=== PATIENT | female | born 1985 | race American Indian/Alaskan Native ===

== ENCOUNTER 2019-04-13 11:26 | Observation (INO) | payer MEDICAID ==
--- NOTE | 2019-04-13 11:45 | Emergency Department Report ---
Blank Doc - Documentation Documentation: This is a 33-year-old female that presents with uncontrolled HTN. Is 36 weeks and was sent by OBGYN for further eval. This initial assessment/diagnostic orders/clinical plan/treatment(s) is/are subject to change based on patient's health status, clinical progression and re- assessment by fellow clinical providers in the ED. Further treatment and workup at subsequent clinical providers discretion. Patient/guardians urged not to elope from the ED as their condition may be serious if not clinically assessed and managed. Initial orders include: 1- Patient sent to MAIN ED for further evaluation and treatment 2- labs 3- UA
[2019-04-13] MEDS ORDERED: MAGNESIUM SULFATE 4GM/100ML 4 GM/100 ML BAG IV ONE (12:32)
[2019-04-13] MEDS ORDERED: APRESOLINE IV ONE (12:32)
[2019-04-13] MEDS ORDERED: MAGNESIUM SULFATE 40GM/1000ML 40 GM/1,000 ML BAG IV ONE (12:32)
--- NOTE | 2019-04-13 12:34 | Emergency Department Report ---
ED General Adult HPI - General Chief complaint: Dyspnea/Respdistress Stated complaint: PRE ECLAMPSIA Time Seen by Provider: 04/13/19 11:43 Source: patient, RN notes reviewed Mode of arrival: Ambulatory Limitations: No Limitations - History of Present Illness Initial comments: Gynecology: Dr. Crain Past medical history: Hypertension, preeclampsia, obesity, probable undiagnosed sleep apnea. This is a 33-year-old female. The patient is not known to this provider previously. The patient is sent to the ER by her airport representative for evaluation of presumed peripartum preeclampsia. Patient complains of exertional shortness of breath, present since before the inception of her current . She endorses that she has incomplete/in adequate sleep, and will fall sleep during the day. She snores quite a bit at night. She does not have a formal diagnosis of sleep apnea. She denies hematemesis and bright red blood per rectum. She denies chest pain. She endorses suprapubic lower abdominal pressure and discomfort, intermittently, which decreases when she sits back, and increases with movement. She is not having pain at this time. She does not endorse urinary symptoms at this time. She also describes binocular blurred vision, present for weeks. This is painless. This is not associated with a headache. She hasn't gotten her vision checked recently. -: Gradual Consistency: intermittent Improves with: other Worsens with: other - Related Data Allergies Allergy/AdvReac Type Severity Reaction Status Date / Time No Known Allergies Allergy Verified 04/13/19 15:55 ED Review of Systems ROS: Stated complaint: PRE ECLAMPSIA Other details as noted in HPI Constitutional: denies: fever Eyes: other. denies: eye pain, eye discharge ENT: denies: dental pain Respiratory: denies: cough Cardiovascular: dyspnea on exertion. denies: edema Gastrointestinal: abdominal pain. denies: vomiting Genitourinary: denies: urgency Musculoskeletal: back pain Skin: denies: lesions Neurological: denies: headache, numbness, paresthesias, confusion ED Past Medical Hx - Past Medical History Previous Medical History?: Yes Additional medical history: Pre Eclampsia - Social History Smoking Status: Never Smoker Substance Use Type: None ED Physical Exam - General Limitations: No Limitations General appearance: alert, in no apparent distress - Head Head exam: Present: atraumatic, normocephalic - Eye Eye exam: Present: normal appearance, EOMI, other (visual acuity intact to finger counting, color perception, reading at a close distance). Absent: nystagmus - ENT ENT exam: Present: normal exam, normal orophraynx, mucous membranes moist, normal external ear exam - Neck Neck exam: Present: normal inspection, full ROM. Absent: tenderness, meningismus - Respiratory Respiratory exam: Present: normal lung sounds bilaterally. Absent: respiratory distress - Cardiovascular Cardiovascular Exam: Present: normal rhythm, tachycardia, normal heart sounds. Absent: systolic murmur, diastolic murmur, rubs, gallop - GI/Abdominal GI/Abdominal exam: Present: soft, other (uterus is consistent with dates.). Absent: distended, tenderness, guarding, rebound, rigid, pulsatile mass - Extremities Exam Extremities exam: Present: normal inspection, full ROM, other (2+ pulses noted in the bilateral upper, lower extremities. Compartments soft. No long bony tenderness. The pelvis is stable.). Absent: calf tenderness - Back Exam Back exam: Present: normal inspection, full ROM. Absent: tenderness, CVA tenderness (R), CVA tenderness (L), paraspinal tenderness, vertebral tenderness - Neurological Exam Neurological exam: Present: alert, oriented X3, normal gait, other (Extraocular movements intact. Tongue midline. No facial droop. Facial sensation intact to light touch in the V1, V2, V3 distribution bilaterally. 5 and 5 strength in 4 extremities.. Sensation is intact to light touch in 4 extremities.). Absent: motor sensory deficit - Psychiatric Psychiatric exam: Present: normal affect, normal mood - Skin Skin exam: Present: warm, dry, intact, normal color. Absent: rash ED Course Vital Signs 04/13/19 04/13/19 04/13/19 11:44 12:54 13:00 Temperature 98.8 F Pulse Rate 112 H 113 H Respiratory 16 24 Rate Blood Pressure 138/81 140/83 O2 Sat by Pulse 98 100 99 Oximetry 04/13/19 13:30 Temperature Pulse Rate 109 H Respiratory 17 Rate Blood Pressure 138/87 O2 Sat by Pulse 99 Oximetry ED Medical Decision Making - Lab Data Result diagrams: 04/13/19 11:56 04/13/19 11:51 Vital Signs 04/13/19 11:44 Temperature 98.8 F Pulse Rate 112 H Respiratory 16 Rate Blood Pressure 138/81 O2 Sat by Pulse 98 Oximetry Lab Results 04/13/19 04/13/19 Range/Units 11:51 11:56 WBC 18.2 H (4.5-11.0) K/mm3 RBC 3.79 (3.65-5.03) M/mm3 Hgb 5.8 L* (10.1-14.3) gm/dl Hct 20.4 L (30.3-42.9) % MCV 54 L (79-97) fl MCH 15 L (28-32) pg MCHC 28 L (30-34) % RDW 24.2 H (13.2-15.2) % Lymph % (Auto) Door Worker [place] % (Auto) Door Worker Eos % (Auto) Door Worker Baso % (Auto) Door Worker Lymph # Door Worker Valencia # Door Worker Eos # Door Worker Baso # Door Worker Seg Neutrophils % Door Worker Seg Neutrophils # Door Worker Sodium 138 (137-145) mmol/L Potassium 3.0 L (3.6-5.0) mmol/L Chloride 98.8 (98-107) mmol/L Carbon Dioxide 21 L (22-30) mmol/L Anion Gap 21 mmol/L BUN 5 L (7-17) mg/dL Creatinine 0.5 L (0.7-1.2) mg/dL Estimated GFR > 60 ml/min BUN/Creatinine Ratio 10 % Glucose 134 H (65-100) mg/dL Calcium 8.6 (8.4-10.2) mg/dL Magnesium 1.40 L (1.7-2.3) mg/dL Total Bilirubin 0.90 (0.1-1.2) mg/dL AST 27 (5-40) units/L ALT 13 (7-56) units/L Alkaline Phosphatase 121 (35-129) units/L Total Creatine Kinase 448 H (30-135) units/L NT-Pro-B Natriuret Pep 5.36 (0-450) pg/mL Total Protein 7.3 (6.3-8.2) g/dL Albumin 3.3 L (3.9-5) g/dL Albumin/Globulin Ratio 0.8 % - EKG Data -: EKG Interpreted by Id EKG shows normal: sinus rhythm Rate: normal - EKG Data 04/13/19 13:26 This is a sinus tachycardia, 116 bpm, QTC prolonged, left ventricular hypertrophy, atrial enlargement, motion artifact, no endorsement chest pain, this EKG is not consistent with ST elevation myocardial infarction. - Medical Decision Making Differential diagnosis, including not limited to: Obstructive sleep apnea, preeclampsia, hypertensive retinopathy Assessment and plan: 33-year-old female with shortness of breath, binocular blurry vision, and elevated blood pressure. Found to be anemic. Suspect combination of anemia, and presumed undiagnosed obstructive sleep apnea as etiology for patient's exertional shortness of breath. Patient is amenable to packed red blood cell transfusion. Binocular blurry vision is nonspecific. Blood pressure currently 140/70. Discussed with her staff software engineer, Dr. Crain. He is agreeable to admitting the patient to labor and delivery. This is discussed with the patient. We will initiate magnesium. Dr. Crain is in agreement that we hold hydralazine at this time. We will also replete the patient's hypokalemia and hypomagnesemia. Patient should follow up as an outpatient once optimized as per gynecology see discussion. She'll need to follow-up with a sleep physician. Tachycardia likely secondary to underlying physiology of , and underlying physiology from presumed symptomatic anemia. The patient denies GI bleeding. Leukocytosis is likely secondary to physiology of . Critical Care Time: Yes Critical care time in (mins) excluding proc time.: 35 Critical care attestation.: If time is entered above; I have spent that time in minutes in the direct care of this critically ill patient, excluding procedure time. ED Disposition Clinical Impression: Symptomatic anemia, Hypokalemia, Hypomagnesemia Dyspnea Qualifiers: Dyspnea type: dyspnea on exertion Qualified Code(s): R06.09 - Other forms of dyspnea Disposition: -09 OP ADMIT IP TO THIS HOSP Is pt being admited?: Yes Does the pt Need Aspirin: Yes (sympto) Condition: Stable
[2019-04-13 12:39] LABS: Mean Corpuscular HGB Conc 28 % (30-34); Red Blood Count 3.79 M/mm3 (3.65-5.03)
[2019-04-13 12:43] LABS: Alanine Aminotransferase 13 units/L (7-56); Albumin 3.3 g/dL (3.9-5); BUN/Creatinine Ratio 10; Blood Urea Nitrogen 5 mg/dL (7-17); Calcium 8.6 mg/dL (8.4-10.2); Hemolysis Index 0
[2019-04-13 12:55] LABS: Hematocrit 20.4 % (30.3-42.9); Mean Corpuscular Volume 54 fl (79-97)
[2019-04-13 12:56] LABS: Red Cell Distribution Width 24.2 % (13.2-15.2)
[2019-04-13] MEDS ORDERED: K-DUR PO ONE (13:06)
[2019-04-13] MEDS ORDERED: NACL 0.9% 500 ML 500 ML IV ONE ×2 (13:07→17:51)
[2019-04-13] MEDS: KCL 10MEQ/100ML 10 MEQ/100 ML BAG IV SCH ×4 (14:20→20:13)
[2019-04-13 14:29] LABS: Hemoglobin 5.8 gm/dl (10.1-14.3)
[2019-04-13 14:43] LABS: Bacteria,Urine 1+ /HPF (Negative); Bilirubin,Urine NEG (Negative); Blood,Urine NEG (Negative); Mucus,Urine FEW /HPF
[2019-04-13 14:45] LABS: Color,Urine Yellow (Yellow)
[2019-04-13 15:51] LABS: Basophils % (Manual) 0 % (0.0-1.8); Eosinophils % (Manual) 0 % (0.0-4.3); Total Cells Counted 100
[2019-04-13 15:52] LABS: Anisocytosis 1+; Ovalocytes 1+; Platelet Count 239 K/mm3 (140-440); Tear Drop Cells 1+
[2019-04-13] MEDS ORDERED: LACTATED RINGERS 1,000 ML ONE (16:25)
[2019-04-13] MEDS ORDERED: LACTATED RINGERS 1,000 ML IV SCH ×2 (17:00→18:00)
[2019-04-13] MEDS ORDERED: COLACE PO PRN (17:39)
[2019-04-13] MEDS ORDERED: TYLENOL PO PRN (17:39)
--- NOTE | 2019-04-13 17:39 | History and Physical Report ---
History of Present Illness Date of examination: 04/13/19 Date of admission: 04/13/19 13:29 Chief complaint: Elevated BP's History of present illness: Pt is a 33yo BF EDC 05/08/19; EGA 36 3/7 weeks presents from [facility] ER after evaluation for suspected preeclampsia. She currently denies head aches or blurred vision, but complains of dyspnea on exertion. She has not received care with this , but was seen at [facility] today and sent to the ER. Past History Past Medical History: no pertinent history Past Surgical History: section Social history: no significant social history, single - Obstetrical History Expected Date of Delivery: 05/08/19 Actual Gestation: 36 Week(s) 3 Day(s) : 7 Medications and Allergies Allergies Allergy/AdvReac Type Severity Reaction Status Date / Time No Known Allergies Allergy Verified 04/13/19 15:55 Active Meds: Active Medications Magnesium Sulfate (Magnesium Sulfate 40gm/1000ml) 40 gm in 1,000 mls @ 25 mls/hr IV ONCE ONE Stop: 04/15/19 04:31 Last Admin: 04/13/19 16:48 Dose: 1 gm/hr, 25 mls/hr Documented by: Potassium Chloride (Kcl 10meq/100ml) 10 meq in 100 mls @ 100 mls/hr IV Q1H NIHARIKA Stop: 04/13/19 17:59 Last Admin: 04/13/19 16:49 Dose: 100 mls/hr Documented by: Lactated Ringer's (Lactated Ringers) 1,000 mls @ 125 mls/hr IV DIRECT NIHARIKA Review of Systems All systems: negative - Vital Signs Vital signs: Vital Signs Temp Pulse Resp BP Pulse Ox 98.8 F 112 H 16 138/81 98 04/13/19 11:44 04/13/19 11:44 04/13/19 11:44 04/13/19 11:44 04/13/19 11:44 Temp Pulse Resp BP Pulse Ox 97.7 F 104 H 20 141/79 99 04/13/19 15:44 04/13/19 17:16 04/13/19 15:44 04/13/19 17:16 04/13/19 13:30 - Physical Exam Breasts: Positive: deferred Cardiovascular: Regular rate Lungs: Positive: Clear to auscultation Abdomen: Positive: normal appearance, soft Genitourinary (Female): Positive: normal external genitalia Uterus: Positive: enlarged - Obstetrical FHR: category 1 Uterine Contraction Monitor Mode: External Results Result Diagrams: 04/13/19 11:56 04/13/19 11:51 Abnormal lab results 04/13/19 04/13/19 04/13/19 Range/Units 11:51 11:56 13:07 WBC 18.2 H (4.5-11.0) K/mm3 Hgb 5.8 L* (10.1-14.3) gm/dl Hct 20.4 L (30.3-42.9) % MCV 54 L (79-97) fl MCH 15 L (28-32) pg MCHC 28 L (30-34) % RDW 24.2 H (13.2-15.2) % Seg Neuts % (Manual) 93.0 H (40.0-70.0) % Lymphocytes % (Manual) 5.0 L (13.4-35.0) % Seg Neutrophils # Man 16.9 H (1.8-7.7) K/mm3 Lymphocytes # (Manual) 0.9 L (1.2-5.4) K/mm3 Potassium 3.0 L (3.6-5.0) mmol/L Carbon Dioxide 21 L (22-30) mmol/L BUN 5 L (7-17) mg/dL Creatinine 0.5 L (0.7-1.2) mg/dL Glucose 134 H (65-100) mg/dL Magnesium 1.40 L (1.7-2.3) mg/dL Total Creatine Kinase 448 H (30-135) units/L Albumin 3.3 L (3.9-5) g/dL Crossmatch See Detail All other labs normal. Assessment and Plan - Patient Problems (1) 36 weeks gestation of Onset Date: 04/13/19 Current Visit: Yes Status: Acute Plan to address problem: A: IUP @ 36 3/7 weeks Insufficient care Previous C Section Dyspnea Symptomatic anemia Hypokalemia Hypomagnesia P: Admit to L&D for Observation and further evaluation Continue IV Magnesium sulfate and IV potassium Will transfuse 2 units PRBC's Obtain labs and Ob u/s (2) Insufficient care in third trimester Onset Date: 04/13/19 Current Visit: Yes Status: Acute (3) Previous section complicating Onset Date: 04/13/19 Current Visit: Yes Status: Acute (4) Dyspnea Onset Date: 04/13/19 Current Visit: Yes Status: Acute Qualifiers: Dyspnea type: dyspnea on exertion Qualified Code(s): R06.09 - Other forms of dyspnea (5) Hypokalemia Onset Date: 04/13/19 Current Visit: Yes Status: Acute (6) Hypomagnesemia Onset Date: 04/13/19 Current Visit: Yes Status: Acute (7) Symptomatic anemia Onset Date: 04/13/19 Current Visit: Yes Status: Acute
--- NOTE | 2019-04-13 22:04 | Ultrasound Report ---
US OB BPP wo non-stress INDICATION: No care. COMPARISON: None available. FINDINGS: The total biophysical profile score is 8 out of 8. heart rate measures 124 bpm. Signer Name: Vinicio Zhang MD Signed: 04/13/2019 9:00 PM Workstation Name: [employer]
[2019-04-13 23:31] LABS: Amphetamine Screen,Urine PRESUMPTIVE NEGATIVE; Benzodiazepines Screen,Urine PRESUMPTIVE NEGATIVE; Cannabinoid Screen,Urine PRESUMPTIVE NEGATIVE; Cocaine Screen,Urine PRESUMPTIVE NEGATIVE; Methadone Screen,Urine PRESUMPTIVE NEGATIVE; Opiate Screen,Urine PRESUMPTIVE NEGATIVE
[2019-04-14 02:50] LABS: Hematocrit 23.3 % (30.3-42.9); Hemoglobin 6.6 gm/dl (10.1-14.3)
[2019-04-14] MEDS ORDERED: PRENATAL VITAMIN PO SCH (10:00)
[2019-04-14 11:30] LABS: Alanine Aminotransferase 12 units/L (7-56); Albumin 3.1 g/dL (3.9-5); BUN/Creatinine Ratio 10; Blood Urea Nitrogen 4 mg/dL (7-17); Calcium 8.3 mg/dL (8.4-10.2); Hemolysis Index 8
--- NOTE | 2019-04-14 14:23 | Progress Note ---
Assessment and Plan - Patient Problems (1) 36 weeks gestation of Onset Date: 04/13/19 Current Visit: Yes Status: Acute Plan to address problem: A: IUP @ 36 4/7 weeks Insufficient care Previous C Section Dyspnea - resolved Symptomatic anemia - resolved Hypokalemia - improved Hypomagnesia - improved P: May go home today. (2) Insufficient care in third trimester Onset Date: 04/13/19 Current Visit: Yes Status: Acute (3) Previous section complicating Onset Date: 04/13/19 Current Visit: Yes Status: Acute (4) Dyspnea Onset Date: 04/13/19 Current Visit: Yes Status: Acute Qualifiers: Dyspnea type: dyspnea on exertion Qualified Code(s): R06.09 - Other forms of dyspnea (5) Hypokalemia Onset Date: 04/13/19 Current Visit: Yes Status: Acute (6) Hypomagnesemia Onset Date: 04/13/19 Current Visit: Yes Status: Acute (7) Symptomatic anemia Onset Date: 04/13/19 Current Visit: Yes Status: Acute Subjective - Subjective Date of service: 04/14/19 Principal diagnosis: IUP @ 36 4/7 weeks; PTL; Previous C Section; No care; Anemia Interval history: Pt is a 33yo BF EDC 05/08/19; EGA 36 4/7 weeks who presented from [facility] ER after evaluation for suspected preeclampsia. She currently denied head aches or blurred vision, but complains of dyspnea on exertion. She has not received care with this . She was admitted and begun on IV Magnesium sulfate, IV potassium, and received 2 units of blood. She is feeling much better and denies contraction or dyspnea on exertion. Patient reports: movement normal, no new complaints, no loss of fluid, no vaginal bleeding, no contractions Objective - Vital Signs Vital Signs: Vital Signs - 12hr 04/14/19 04/14/19 04/14/19 02:24 02:29 02:31 Pulse Rate 92 H 96 H 92 H Blood Pressure O2 Sat by Pulse 96 97 92 Oximetry 04/14/19 04/14/19 04/14/19 02:34 02:39 02:44 Pulse Rate 86 94 H 99 H Blood Pressure O2 Sat by Pulse 98 100 98 Oximetry 04/14/19 04/14/19 04/14/19 02:49 02:54 02:59 Pulse Rate 88 87 86 Blood Pressure O2 Sat by Pulse 97 93 95 Oximetry 04/14/19 04/14/19 04/14/19 03:03 03:04 03:06 Pulse Rate 86 96 H 90 Blood Pressure 111/63 O2 Sat by Pulse 92 97 Oximetry 04/14/19 04/14/19 04/14/19 03:09 03:13 03:14 Pulse Rate 92 H 90 90 Blood Pressure O2 Sat by Pulse 98 92 97 Oximetry 04/14/19 04/14/19 04/14/19 03:19 03:20 03:24 Pulse Rate 87 85 86 Blood Pressure O2 Sat by Pulse 91 92 97 Oximetry 04/14/19 04/14/19 04/14/19 03:25 03:29 03:32 Pulse Rate 83 89 91 H Blood Pressure O2 Sat by Pulse 90 93 94 Oximetry 04/14/19 04/14/19 04/14/19 03:34 03:37 03:39 Pulse Rate 84 82 81 Blood Pressure O2 Sat by Pulse 92 93 93 Oximetry 04/14/19 04/14/19 04/14/19 03:43 03:48 03:49 Pulse Rate 87 84 79 Blood Pressure O2 Sat by Pulse 95 91 89 Oximetry 04/14/19 04/14/19 04/14/19 03:53 03:54 03:59 Pulse Rate 79 89 89 Blood Pressure O2 Sat by Pulse 93 96 93 Oximetry 04/14/19 04/14/19 04/14/19 04:04 04:06 04:09 Pulse Rate 84 85 82 Blood Pressure 125/69 O2 Sat by Pulse 93 91 Oximetry 04/14/19 04/14/19 04/14/19 04:14 04:19 04:24 Pulse Rate 87 92 H 95 H Blood Pressure O2 Sat by Pulse 94 98 96 Oximetry 04/14/19 04/14/19 04/14/19 04:29 04:33 04:34 Pulse Rate 98 H 87 90 Blood Pressure O2 Sat by Pulse 99 94 96 Oximetry 04/14/19 04/14/19 04/14/19 04:39 04:44 04:48 Pulse Rate 91 H 91 H 84 Blood Pressure O2 Sat by Pulse 95 97 94 Oximetry 04/14/19 04/14/19 04/14/19 04:49 04:54 04:59 Pulse Rate 85 84 95 H Blood Pressure O2 Sat by Pulse 96 91 99 Oximetry 04/14/19 04/14/19 04/14/19 05:04 05:06 05:07 Pulse Rate 90 86 88 Blood Pressure 138/78 O2 Sat by Pulse 97 93 Oximetry 04/14/19 04/14/19 04/14/19 05:09 05:13 05:14 Pulse Rate 88 88 89 Blood Pressure O2 Sat by Pulse 96 92 95 Oximetry 04/14/19 04/14/19 04/14/19 05:18 05:19 05:23 Pulse Rate 87 86 88 Blood Pressure O2 Sat by Pulse 93 95 92 Oximetry 04/14/19 04/14/19 04/14/19 05:24 05:29 05:34 Pulse Rate 89 92 H 91 H Blood Pressure O2 Sat by Pulse 95 92 92 Oximetry 04/14/19 04/14/19 04/14/19 05:39 05:44 05:49 Pulse Rate 88 88 93 H Blood Pressure O2 Sat by Pulse 93 91 96 Oximetry 04/14/19 04/14/19 04/14/19 05:50 05:54 05:56 Pulse Rate 89 87 94 H Blood Pressure O2 Sat by Pulse 94 91 93 Oximetry 04/14/19 04/14/19 04/14/19 05:59 06:01 06:04 Pulse Rate 97 H 92 H 89 Blood Pressure O2 Sat by Pulse 94 94 95 Oximetry 04/14/19 04/14/19 04/14/19 06:06 06:09 06:12 Pulse Rate 95 H 91 H 94 H Blood Pressure 142/90 O2 Sat by Pulse 92 91 93 Oximetry 04/14/19 04/14/19 04/14/19 06:14 06:19 06:24 Pulse Rate 95 H 93 H 91 H Blood Pressure O2 Sat by Pulse 97 98 97 Oximetry 04/14/19 04/14/19 04/14/19 06:29 06:34 06:39 Pulse Rate 92 H 91 H 89 Blood Pressure O2 Sat by Pulse 97 98 96 Oximetry 04/14/19 04/14/19 04/14/19 06:44 06:46 06:49 Pulse Rate 90 102 H 95 H Blood Pressure O2 Sat by Pulse 97 93 98 Oximetry 04/14/19 04/14/19 04/14/19 06:54 06:59 07:04 Pulse Rate 96 H 97 H 98 H Blood Pressure O2 Sat by Pulse 97 96 99 Oximetry 04/14/19 04/14/19 04/14/19 07:06 07:09 07:14 Pulse Rate 88 92 H 92 H Blood Pressure 140/80 O2 Sat by Pulse 98 97 Oximetry 04/14/19 04/14/19 04/14/19 07:19 07:24 07:29 Pulse Rate 95 H 87 90 Blood Pressure O2 Sat by Pulse 99 98 97 Oximetry 04/14/19 04/14/19 04/14/19 07:34 07:39 07:42 Pulse Rate 90 102 H 92 H Blood Pressure O2 Sat by Pulse 97 98 87 Oximetry 04/14/19 04/14/19 04/14/19 07:44 07:49 07:54 Pulse Rate 90 90 93 H Blood Pressure O2 Sat by Pulse 98 97 97 Oximetry 04/14/19 04/14/19 04/14/19 07:59 08:04 08:06 Pulse Rate 88 92 H 92 H Blood Pressure 134/84 O2 Sat by Pulse 98 97 Oximetry 04/14/19 04/14/19 04/14/19 08:09 08:14 08:19 Pulse Rate 91 H 90 102 H Blood Pressure O2 Sat by Pulse 98 97 99 Oximetry 04/14/19 04/14/19 04/14/19 08:24 08:29 08:34 Pulse Rate 103 H 101 H 105 H Blood Pressure O2 Sat by Pulse 97 99 98 Oximetry 04/14/19 04/14/19 04/14/19 08:39 08:44 08:49 Pulse Rate 94 H 91 H 93 H Blood Pressure O2 Sat by Pulse 98 98 97 Oximetry 04/14/19 04/14/19 04/14/19 08:54 08:59 09:04 Pulse Rate 85 95 H 93 H Blood Pressure O2 Sat by Pulse 97 98 98 Oximetry 04/14/19 04/14/19 04/14/19 09:06 09:09 09:14 Pulse Rate 90 97 H 97 H Blood Pressure 132/69 O2 Sat by Pulse 98 100 Oximetry 04/14/19 04/14/19 04/14/19 09:19 09:24 09:29 Pulse Rate 95 H 93 H 94 H Blood Pressure O2 Sat by Pulse 100 100 98 Oximetry 04/14/19 04/14/19 04/14/19 09:34 09:39 09:44 Pulse Rate 89 91 H 93 H Blood Pressure O2 Sat by Pulse 99 97 98 Oximetry 04/14/19 04/14/19 04/14/19 09:49 09:54 09:59 Pulse Rate 93 H 92 H 93 H Blood Pressure O2 Sat by Pulse 98 99 97 Oximetry 04/14/19 04/14/19 04/14/19 10:04 10:06 10:09 Pulse Rate 93 H 88 94 H Blood Pressure 118/58 O2 Sat by Pulse 97 96 Oximetry 04/14/19 04/14/19 04/14/19 10:14 10:19 10:24 Pulse Rate 94 H 88 89 Blood Pressure O2 Sat by Pulse 97 100 97 Oximetry 04/14/19 04/14/19 04/14/19 10:29 10:34 10:39 Pulse Rate 95 H 95 H 89 Blood Pressure O2 Sat by Pulse 98 98 99 Oximetry 04/14/19 04/14/19 04/14/19 10:44 10:49 10:54 Pulse Rate 90 94 H 91 H Blood Pressure O2 Sat by Pulse 97 97 97 Oximetry 04/14/19 04/14/19 04/14/19 10:59 11:04 11:06 Pulse Rate 89 94 H 93 H Blood Pressure 135/73 O2 Sat by Pulse 97 97 Oximetry 04/14/19 04/14/19 04/14/19 11:09 11:14 11:19 Pulse Rate 92 H 92 H 92 H Blood Pressure O2 Sat by Pulse 98 97 98 Oximetry 04/14/19 04/14/19 04/14/19 11:24 11:29 11:34 Pulse Rate 93 H 92 H 92 H Blood Pressure O2 Sat by Pulse 98 98 99 Oximetry 04/14/19 04/14/19 04/14/19 11:39 11:44 11:49 Pulse Rate 95 H 96 H 95 H Blood Pressure O2 Sat by Pulse 99 97 99 Oximetry 04/14/19 04/14/19 04/14/19 11:54 11:59 12:04 Pulse Rate 100 H 99 H 92 H Blood Pressure O2 Sat by Pulse 99 99 98 Oximetry 04/14/19 04/14/19 04/14/19 12:06 12:09 12:14 Pulse Rate 93 H 107 H 104 H Blood Pressure 141/72 O2 Sat by Pulse 97 97 Oximetry 04/14/19 04/14/19 04/14/19 12:19 12:23 12:24 Pulse Rate 92 H 84 93 H Blood Pressure O2 Sat by Pulse 98 84 83 L Oximetry 04/14/19 04/14/19 04/14/19 12:29 12:34 12:39 Pulse Rate 98 H 95 H 90 Blood Pressure O2 Sat by Pulse 99 99 98 Oximetry 04/14/19 04/14/19 04/14/19 12:44 12:49 12:54 Pulse Rate 88 85 90 Blood Pressure O2 Sat by Pulse 98 99 97 Oximetry 04/14/19 04/14/19 04/14/19 12:59 13:04 13:06 Pulse Rate 90 89 88 Blood Pressure 117/59 O2 Sat by Pulse 99 98 Oximetry 04/14/19 04/14/19 04/14/19 13:09 13:14 13:19 Pulse Rate 89 93 H 93 H Blood Pressure O2 Sat by Pulse 100 100 100 Oximetry 04/14/19 04/14/19 04/14/19 13:24 13:29 13:34 Pulse Rate 94 H 94 H 91 H Blood Pressure O2 Sat by Pulse 99 100 97 Oximetry 04/14/19 04/14/19 04/14/19 13:39 13:44 13:49 Pulse Rate 94 H 102 H 98 H Blood Pressure O2 Sat by Pulse 98 98 100 Oximetry 04/14/19 04/14/19 04/14/19 13:54 13:59 14:04 Pulse Rate 92 H 96 H 102 H Blood Pressure O2 Sat by Pulse 98 99 98 Oximetry 04/14/19 04/14/19 04/14/19 14:06 14:09 14:14 Pulse Rate 92 H 98 H 91 H Blood Pressure 127/84 O2 Sat by Pulse 98 98 Oximetry 04/14/19 14:19 Pulse Rate 95 H Blood Pressure O2 Sat by Pulse 98 Oximetry - Exam Cardiovascular: Regular rate Lungs: Clear to auscultation Abdomen: Present: normal appearance, soft Uterus: Present: normal FHR: category 1 Uterine Contraction Monitor Mode: External Uterine Contraction Pattern: Absent - Labs Labs: Abnormal Labs 04/13/19 04/13/19 04/13/19 11:51 11:56 13:07 WBC 18.2 H Hgb 5.8 L* Hct 20.4 L MCV 54 L MCH 15 L MCHC 28 L RDW 24.2 H Seg Neuts % (Manual) 93.0 H Lymphocytes % (Manual) 5.0 L Seg Neutrophils # Man 16.9 H Lymphocytes # (Manual) 0.9 L Sodium Potassium 3.0 L Carbon Dioxide 21 L BUN 5 L Creatinine 0.5 L Glucose 134 H Calcium Magnesium 1.40 L Total Creatine Kinase 448 H Albumin 3.3 L Crossmatch See Detail 04/14/19 04/14/19 02:03 10:16 WBC Hgb 6.6 L Hct 23.3 L MCV MCH MCHC RDW Seg Neuts % (Manual) Lymphocytes % (Manual) Seg Neutrophils # Man Lymphocytes # (Manual) Sodium 136 L Potassium 3.4 L Carbon Dioxide BUN 4 L Creatinine 0.4 L Glucose Calcium 8.3 L Magnesium 3.30 H Total Creatine Kinase Albumin 3.1 L Crossmatch Laboratory Results - last 24 hr 04/13/19 04/13/19 04/13/19 11:56 13:07 18:11 Hgb 5.8 L* Hct Plt Count 239 Add Manual Diff Complete Total Counted 100 Seg Neuts % (Manual) 93.0 H Band Neutrophils % 0 Lymphocytes % (Manual) 5.0 L Reactive Lymphs % (Man) 0 Monocytes % (Manual) 2.0 Eosinophils % (Manual) 0 Basophils % (Manual) 0 Metamyelocytes % 0 Myelocytes % 0 Promyelocytes % 0 Blast Cells % 0 Nucleated RBC % Not Reportable Seg Neutrophils # Man 16.9 H Band Neutrophils # 0.0 Lymphocytes # (Manual) 0.9 L Abs React Lymphs (Man) 0.0 Monocytes # (Manual) 0.4 Eosinophils # (Manual) 0.0 Basophils # (Manual) 0.0 Metamyelocytes # 0.0 Myelocytes # 0.0 Promyelocytes # 0.0 Blast Cells # 0.0 WBC Morphology Not Reportable Hypersegmented Neuts Not Reportable Hyposegmented Neuts Not Reportable Hypogranular Neuts Not Reportable Smudge Cells Not Reportable Toxic Granulation Not Reportable Toxic Vacuolation Not Reportable Dohle Bodies Not Reportable Pelger-Huet Anomaly Not Reportable Eboni Rods Not Reportable Platelet Estimate Appears normal Clumped Platelets Not Reportable Plt Clumps, EDTA Not Reportable Large Platelets Not Reportable Giant Platelets Not Reportable Platelet Satelliting Not Reportable Plt Morphology Comment Not Reportable RBC Morphology Not Reportable Dimorphic RBCs Not Reportable Polychromasia Not Reportable Hypochromasia Not Reportable Poikilocytosis Not Reportable Anisocytosis 1+ Microcytosis Not Reportable Macrocytosis Not Reportable Spherocytes Not Reportable Pappenheimer Bodies Not Reportable Sickle Cells Not Reportable Target Cells Not Reportable Tear Drop Cells 1+ Ovalocytes 1+ Helmet Cells Not Reportable Shepard-Callery Bodies Not Reportable Good[place] Rings Not Reportable [place] Cells Not Reportable Bite Cells Not Reportable Crenated Cell Not Reportable Elliptocytes 1+ Acanthocytes (Spur) Not Reportable Rouleaux Not Reportable Hemoglobin C Crystals Not Reportable Schistocytes Not Reportable Malaria parasites Not Reportable John Bodies Not Reportable Hem Pathologist Commnt No Sodium Potassium Chloride Carbon Dioxide Anion Gap BUN Creatinine Estimated GFR BUN/Creatinine Ratio Glucose Calcium Magnesium Total Bilirubin AST ALT Alkaline Phosphatase Total Protein Albumin Albumin/Globulin Ratio Urine Color Urine Turbidity Urine pH Ur Specific [place] Urine Protein Urine Glucose (UA) Urine Ketones Urine Blood Urine Nitrite Urine Bilirubin Urine Urobilinogen Ur Leukocyte Esterase Urine WBC (Auto) Urine RBC (Auto) U Epithel Cells (Auto) Urine Bacteria (Auto) Urine Mucus Urine Opiates Screen Presumptive negative Urine Methadone Screen Presumptive negative Ur Barbiturates Screen Presumptive negative Ur Phencyclidine Scrn Presumptive negative Ur Amphetamines Screen Presumptive negative U Benzodiazepines Scrn Presumptive negative Urine Cocaine Screen Presumptive negative U Marijuana (THC) Screen Presumptive negative Drugs of Abuse Note Disclamer RPR Hep Bs Antigen HIV 1&2 Antibody Rapid HIV P24 Antigen Rubella IgG Antibody Blood Type O NEGATIVE Antibody Screen Negative Crossmatch See Detail 04/13/19 04/14/19 04/14/19 Unknown 02:03 02:03 Hgb Hct Plt Count Add Manual Diff Total Counted Seg Neuts % (Manual) Band Neutrophils % Lymphocytes % (Manual) Reactive Lymphs % (Man) Monocytes % (Manual) Eosinophils % (Manual) Basophils % (Manual) Metamyelocytes % Myelocytes % Promyelocytes % Blast Cells % Nucleated RBC % Seg Neutrophils # Man Band Neutrophils # Lymphocytes # (Manual) Abs React Lymphs (Man) Monocytes # (Manual) Eosinophils # (Manual) Basophils # (Manual) Metamyelocytes # Myelocytes # Promyelocytes # Blast Cells # WBC Morphology Hypersegmented Neuts Hyposegmented Neuts Hypogranular Neuts Smudge Cells Toxic Granulation Toxic Vacuolation Dohle Bodies Pelger-Huet Anomaly Eboni Rods Platelet Estimate Clumped Platelets Plt Clumps, EDTA Large Platelets Giant Platelets Platelet Satelliting Plt Morphology Comment RBC Morphology Dimorphic RBCs Polychromasia Hypochromasia Poikilocytosis Anisocytosis Microcytosis Macrocytosis Spherocytes Pappenheimer Bodies Sickle Cells Target Cells Tear Drop Cells Ovalocytes Helmet Cells Shepard-Callery Bodies Good[place] Rings Win Cells Bite Cells Crenated Cell Elliptocytes Acanthocytes (Spur) Rouleaux Hemoglobin C Crystals Schistocytes Malaria parasites John Bodies Hem Pathologist Commnt Sodium Potassium Chloride Carbon Dioxide Anion Gap BUN Creatinine Estimated GFR BUN/Creatinine Ratio Glucose Calcium Magnesium Total Bilirubin AST ALT Alkaline Phosphatase Total Protein Albumin Albumin/Globulin Ratio Urine Color Yellow Urine Turbidity Slightly-cloudy Urine pH 6.0 Ur Specific [place] 1.019 Urine Protein 100 mg/dl Urine Glucose (UA) Neg Urine Ketones 20 Urine Blood Neg Urine Nitrite Neg Urine Bilirubin Neg Urine Urobilinogen 4.0 Ur Leukocyte Esterase Neg Urine WBC (Auto) 5.0 Urine RBC (Auto) 2.0 U Epithel Cells (Auto) 2.0 Urine Bacteria (Auto) 1+ Urine Mucus Few Urine Opiates Screen Urine Methadone Screen Ur Barbiturates Screen Ur Phencyclidine Scrn Ur Amphetamines Screen U Benzodiazepines Scrn Urine Cocaine Screen U Marijuana (THC) Screen Drugs of Abuse Note RPR Hep Bs Antigen Non-reactive HIV 1&2 Antibody Rapid HIV P24 Antigen Rubella IgG Antibody Immune Blood Type Antibody Screen Crossmatch 04/14/19 04/14/19 04/14/19 02:03 02:03 02:03 Hgb 6.6 L Hct 23.3 L Plt Count Add Manual Diff Total Counted Seg Neuts % (Manual) Band Neutrophils % Lymphocytes % (Manual) Reactive Lymphs % (Man) Monocytes % (Manual) Eosinophils % (Manual) Basophils % (Manual) Metamyelocytes % Myelocytes % Promyelocytes % Blast Cells % Nucleated RBC % Seg Neutrophils # Man Band Neutrophils # Lymphocytes # (Manual) Abs React Lymphs (Man) Monocytes # (Manual) Eosinophils # (Manual) Basophils # (Manual) Metamyelocytes # Myelocytes # Promyelocytes # Blast Cells # WBC Morphology Hypersegmented Neuts Hyposegmented Neuts Hypogranular Neuts Smudge Cells Toxic Granulation Toxic Vacuolation Dohle Bodies Pelger-Huet Anomaly Eboni Rods Platelet Estimate Clumped Platelets Plt Clumps, EDTA Large Platelets Giant Platelets Platelet Satelliting Plt Morphology Comment RBC Morphology Dimorphic RBCs Polychromasia Hypochromasia Poikilocytosis Anisocytosis Microcytosis Macrocytosis Spherocytes Pappenheimer Bodies Sickle Cells Target Cells Tear Drop Cells Ovalocytes Helmet Cells Shepard-Callery Bodies Good[place] Rings Win Cells Bite Cells Crenated Cell Elliptocytes Acanthocytes (Spur) Rouleaux Hemoglobin C Crystals Schistocytes Malaria parasites John Bodies Hem Pathologist Commnt Sodium Potassium Chloride Carbon Dioxide Anion Gap BUN Creatinine Estimated GFR BUN/Creatinine Ratio Glucose Calcium Magnesium Total Bilirubin AST ALT Alkaline Phosphatase Total Protein Albumin Albumin/Globulin Ratio Urine Color Urine Turbidity Urine pH Ur Specific [place] Urine Protein Urine Glucose (UA) Urine Ketones Urine Blood Urine Nitrite Urine Bilirubin Urine Urobilinogen Ur Leukocyte Esterase Urine WBC (Auto) Urine RBC (Auto) U Epithel Cells (Auto) Urine Bacteria (Auto) Urine Mucus Urine Opiates Screen Urine Methadone Screen Ur Barbiturates Screen Ur Phencyclidine Scrn Ur Amphetamines Screen U Benzodiazepines Scrn Urine Cocaine Screen U Marijuana (THC) Screen Drugs of Abuse Note RPR Nonreactive Hep Bs Antigen HIV 1&2 Antibody Rapid Non react HIV P24 Antigen Non react Rubella IgG Antibody Blood Type Antibody Screen Crossmatch 04/14/19 10:16 Hgb Hct Plt Count Add Manual Diff Total Counted Seg Neuts % (Manual) Band Neutrophils % Lymphocytes % (Manual) Reactive Lymphs % (Man) Monocytes % (Manual) Eosinophils % (Manual) Basophils % (Manual) Metamyelocytes % Myelocytes % Promyelocytes % Blast Cells % Nucleated RBC % Seg Neutrophils # Man Band Neutrophils # Lymphocytes # (Manual) Abs React Lymphs (Man) Monocytes # (Manual) Eosinophils # (Manual) Basophils # (Manual) Metamyelocytes # Myelocytes # Promyelocytes # Blast Cells # WBC Morphology Hypersegmented Neuts Hyposegmented Neuts Hypogranular Neuts Smudge Cells Toxic Granulation Toxic Vacuolation Dohle Bodies Pelger-Huet Anomaly Eboni Rods Platelet Estimate Clumped Platelets Plt Clumps, EDTA Large Platelets Giant Platelets Platelet Satelliting Plt Morphology Comment RBC Morphology Dimorphic RBCs Polychromasia Hypochromasia Poikilocytosis Anisocytosis Microcytosis Macrocytosis Spherocytes Pappenheimer Bodies Sickle Cells Target Cells Tear Drop Cells Ovalocytes Helmet Cells Shepard-Callery Bodies Good[place] Rings Win Cells Bite Cells Crenated Cell Elliptocytes Acanthocytes (Spur) Rouleaux Hemoglobin C Crystals Schistocytes Malaria parasites John Bodies Hem Pathologist Commnt Sodium 136 L Potassium 3.4 L Chloride 100.7 Carbon Dioxide 23 Anion Gap 16 BUN 4 L Creatinine 0.4 L Estimated GFR > 60 BUN/Creatinine Ratio 10 Glucose 87 Calcium 8.3 L Magnesium 3.30 H Total Bilirubin 1.10 AST 28 ALT 12 Alkaline Phosphatase 111 Total Protein 6.8 Albumin 3.1 L Albumin/Globulin Ratio 0.8 Urine Color Urine Turbidity Urine pH Ur Specific [place] Urine Protein Urine Glucose (UA) Urine Ketones Urine Blood Urine Nitrite Urine Bilirubin Urine Urobilinogen Ur Leukocyte Esterase Urine WBC (Auto) Urine RBC (Auto) U Epithel Cells (Auto) Urine Bacteria (Auto) Urine Mucus Urine Opiates Screen Urine Methadone Screen Ur Barbiturates Screen Ur Phencyclidine Scrn Ur Amphetamines Screen U Benzodiazepines Scrn Urine Cocaine Screen U Marijuana (THC) Screen Drugs of Abuse Note RPR Hep Bs Antigen HIV 1&2 Antibody Rapid HIV P24 Antigen Rubella IgG Antibody Blood Type Antibody Screen Crossmatch
--- NOTE | 2019-04-14 14:34 | Discharge Summary ---
Providers - Providers Date of Admission: 04/13/19 13:29 Date of discharge: 04/14/19 Attending physician: SWETHA BRADLEY 04/13/19 12:32 Consult to Physician [CONS] Urgent Comment: Consulting Provider: SWETHA BRADLEY Physician Instructions: Reason For Exam: pre ecclampsia Primary care physician: SWETHA BRADLEY Hospitalization Reason for admission: IUP - , labor, other (Previous C Section; Dyspnea; Symptomatic anemia; Hypokalemia; Hypomagnesemia) Other procedures: none complications: none Discharge diagnosis: other (IUP @ 36 4/7 weeks; Insufficient care; Previous C Section) Hospital course: Pt is a 33yo BF EDC 05/08/19; EGA 36 4/7 weeks who presented from [facility] ER after evaluation for suspected preeclampsia. She denied headaches or blurred vision, but complained of dyspnea on exertion. She had not received care with this . She was admitted and begun on IV Magnesium sulfate, IV potassium, and received 2 units of blood raising her H/H from 5.8/20.4 up to 6.6/23.3. She was feeling much better and denied contraction or dyspnea on exertion, and therefore was discharged to home in stable condition. Condition at discharge: Good Disposition: [id number] TO HOME OR SELFCARE - Discharge Diagnoses (1) 36 weeks gestation of Status: Acute (2) Insufficient care in third trimester Status: Acute (3) Previous section complicating Status: Chronic (4) Dyspnea Status: Resolved Qualifiers: Dyspnea type: dyspnea on exertion Qualified Code(s): R06.09 - Other forms of dyspnea (5) Hypokalemia Status: Resolved (6) Hypomagnesemia Status: Resolved (7) Symptomatic anemia Status: Resolved Plan - Discharge Medications Prescriptions: Ferrous Sulfate [Feosol 325 MG tab] 325 mg PO BID #60 tablet Vit-Fe Fumar-FA [ Vitamin] 1 each PO QDAY #30 tablet - Provider Discharge Summary Activity: routine, no sex for 6 weeks, no heavy lifting 4 weeks, no strenuous exercise Diet: routine Instructions: routine Additional instructions: [] Smoking cessation referral if applicable(refer to patient education folder for contact #) [] Refer to [facility] Booklet Call your doctor immediately for: * Fever > 100.5 * Heavy vaginal bleeding ( >1 pad per hour) * Severe persistent headache * Shortness of breath * Reddened, hot, painful area to leg or breast * Drainage or odor from incision. * Keep incision clean and dry at all times and follow doctor's instructions regarding bathing/showering - Follow up plan Follow up: SWETHA BRADLEY MD [Primary Care Provider] - 3-5 Days
[2019-04-14 15:07] VITALS: BP 125/73
== END 2019-04-14 15:53 | disposition home or self-care (01) ==
LOC: ED 11:26 → LD 13:29
PROVIDERS: ADMIT Obstetrics & Gynecology; ATTEND Obstetrics & Gynecology
DX: O99.283 Endocrine, nutritional and metabolic diseases complicating pregnancy, third trimester (principal); E87.6 Hypokalemia; E83.42 Hypomagnesemia; O99.013 Anemia complicating pregnancy, third trimester; O26.893 Other specified pregnancy related conditions, third trimester; R06.00 Dyspnea, unspecified; O09.33 Supervision of pregnancy with insufficient antenatal care, third trimester; O99.213 Obesity complicating pregnancy, third trimester; O16.3 Unspecified maternal hypertension, third trimester; Z3A.37 37 weeks gestation of pregnancy; Z98.890 Other specified postprocedural states; Z79.899 Other long term (current) drug therapy
CPT/HCPCS: 36415; 36430; 76819; 80053; 80307; 81001; 82550; 83735; 83880; 85007; 85014; 85018; 85025; 86592; 86706; 86762; 86850; 86900; 86901; 86920; 87806; 93005; 93010; 96365; 96366; 96368; 99291; G0378; J3475; J3480; J7040; J7120; P9016

== ENCOUNTER 2019-05-03 19:50 | Inpatient (IN) | payer MEDICAID ==
[2019-05-03] MEDS ORDERED: NARCAN 0.4 MG/1 ML IV PRN (21:37)
[2019-05-03] MEDS ORDERED: AMPICILLIN/NS 2 GM/100 ML 2 GM/100 ML BAG IV ONE (21:37)
[2019-05-03] MEDS ORDERED: ZOFRAN IV PRN (21:37)
[2019-05-03] MEDS ORDERED: BRETHINE IVP PRN (21:37)
[2019-05-03] MEDS ORDERED: XYLOCAINE 2% INFILTRATI ONE (21:37)
[2019-05-03] MEDS ORDERED: STADOL IV PRN (21:37)
[2019-05-03] MEDS ORDERED: SUBLIMAZE IV PRN (21:37)
[2019-05-03] MEDS ORDERED: BRETHINE SUB-Q PRN (21:37)
[2019-05-03] MEDS ORDERED: PHENERGAN PO PRN (21:37)
[2019-05-03] MEDS ORDERED: MINERAL OIL PO PRN (21:37)
--- NOTE | 2019-05-03 21:45 | History and Physical Report ---
History of Present Illness Date of examination: 05/03/19 Date of admission: 05/03/19 19:50 Chief complaint: SROM clear fluid @ 1800 History of present illness: Pt is a 33yo BF EDC 05/08/19; EGA 39 2/7 weeks presents to L&D complaining of SROM clear fluid @ 1800 followed by irregular contractions. She received 1 visit @ [facility], and was admitted for a blood transfusion 04/13/19. She also had a previous C Section and desires a TOLAC. Past History Past Medical History: no pertinent history Past Surgical History: section Family/Genetic History: none Social history: no significant social history, single - Obstetrical History Expected Date of Delivery: 05/08/19 Actual Gestation: 39 Week(s) 3 Day(s) : 7 Medications and Allergies Allergies Allergy/AdvReac Type Severity Reaction Status Date / Time No Known Allergies Allergy Verified 04/13/19 15:55 Home Medications Medication Instructions Recorded Confirmed Last Taken Type Ferrous Sulfate [Feosol 325 MG tab] 325 mg PO BID #60 tablet 04/14/19 Unknown Rx Vit-Fe Fumar-FA [ 1 each PO QDAY #30 tablet 04/14/19 Unknown Rx Vitamin] Review of Systems All systems: negative - Vital Signs Vital signs: Vital Signs Pulse BP 113 H 140/92 05/03/19 20:02 05/03/19 20:02 Temp Pulse Resp BP Pulse Ox 113 H 140/92 05/03/19 20:02 05/03/19 20:02 - Physical Exam Breasts: Positive: deferred Cardiovascular: Regular rate Abdomen: Positive: normal appearance Genitourinary (Female): Positive: normal external genitalia Vagina: Positive: normal moisture Uterus: Positive: enlarged Extremities: Positive: normal - Obstetrical FHR: category 1 Uterine Contraction Monitor Mode: External Cervical Dilatation: 1 (per nurse) Cervical Effacement Percentage: 50 (per nurse) station: -3 Uterine Contraction Pattern: Absent Results Result Diagrams: 05/03/19 23:05 All other labs normal. Assessment and Plan - Patient Problems (1) 39 weeks gestation of Onset Date: 05/03/19 Current Visit: Yes Status: Acute Plan to address problem: A: IUP @ 39 2/7 weeks Previous C Section - desires TOLAC Insufficient care Unknown GBS P: Admit to L&D for cervidil/pitocin induction of labor IV Ampicillin (2) Insufficient care in third trimester Onset Date: 04/13/19 Current Visit: No Status: Acute (3) Previous section complicating Onset Date: 04/13/19 Current Visit: No Status: Chronic
[2019-05-03] MEDS ORDERED: PITOCin/NS 30 UNIT/500ML 30 UNITS/500 ML BAG IV SCH ×2 (22:00)
[2019-05-03] MEDS ORDERED: PITOCin/NS 20 UNIT/1000ML DRIP 20 UNITS/1,000 ML BAG IV SCH (22:00)
[2019-05-03] MEDS ORDERED: CERVIDIL VG ONE (22:44)
[2019-05-03] MEDS ORDERED: AMBIEN PO PRN (22:54)
[2019-05-03 23:18] LABS: Hematocrit 22.9 % (30.3-42.9); Hemoglobin 6.7 gm/dl (10.1-14.3); Mean Corpuscular HGB Conc 29 % (30-34); Red Blood Count 3.93 M/mm3 (3.65-5.03)
[2019-05-03 23:21] LABS: Mean Corpuscular Volume 58 fl (79-97); Platelet Count 256 K/mm3 (140-440); Red Cell Distribution Width 29.7 % (13.2-15.2)
[2019-05-04] MEDS: AMPICILLIN/NS 1 GM/50 ML 1 GM/50 ML BAG IV SCH ×2 (04:30→13:33)
--- NOTE | 2019-05-04 10:35 | Progress Note ---
Assessment and Plan - Patient Problems (1) 39 weeks gestation of Onset Date: 05/03/19 Current Visit: Yes Status: Acute Plan to address problem: A: IUP @ 39 3/7 weeks Previous C Section - desires TOLAC Insufficient care Unknown GBS P: Continue with cervidil/pitocin induction of labor IV Ampicillin (2) Insufficient care in third trimester Onset Date: 04/13/19 Current Visit: No Status: Acute (3) Previous section complicating Onset Date: 04/13/19 Current Visit: No Status: Chronic Subjective - Subjective Date of service: 05/04/19 Principal diagnosis: IUP @ 39 3/7 weeks; Previous C Section Interval history: Pt is a 33yo BF EDC 05/08/19; EGA 39 3/7 weeks who presented to L&D complaining of SROM clear fluid followed by irregular contractions. She received 1 visit @ [facility], and was admitted for a blood transfusion 04/13/19. She also had a previous C Section and desired a TOLAC. She received cervidil last night and is currently noris q 3-5 mins. Patient reports: movement normal, contractions, no new complaints, no loss of fluid, no vaginal bleeding Objective - Vital Signs Vital Signs: Vital Signs - 12hr 05/04/19 05/04/19 05/04/19 00:07 00:33 00:48 Temperature Pulse Rate 103 H 100 H 97 H Respiratory Rate Blood Pressure 144/90 147/94 145/85 05/04/19 05/04/19 05/04/19 01:04 01:18 01:34 Temperature Pulse Rate 100 H 106 H 104 H Respiratory Rate Blood Pressure 146/90 144/83 151/85 05/04/19 05/04/19 05/04/19 01:50 02:04 02:19 Temperature Pulse Rate 99 H 99 H 110 H Respiratory Rate Blood Pressure 147/84 136/93 152/92 05/04/19 05/04/19 05/04/19 02:33 02:49 03:03 Temperature Pulse Rate 100 H 110 H 97 H Respiratory Rate Blood Pressure 131/80 141/91 143/85 05/04/19 05/04/19 05/04/19 03:20 03:35 03:48 Temperature Pulse Rate 96 H 102 H 100 H Respiratory Rate Blood Pressure 140/90 143/82 143/82 07/23/19 07/23/19 07/23/19 04:03 04:19 04:33 Temperature Pulse Rate 98 H 94 H 86 Respiratory Rate Blood Pressure 132/81 146/81 140/81 05/04/19 05/04/19 05/04/19 04:49 05:05 05:18 Temperature Pulse Rate 98 H 100 H 88 Respiratory Rate Blood Pressure 149/101 121/71 115/66 05/04/19 05/04/19 05/04/19 05:34 05:49 06:03 Temperature Pulse Rate 98 H 88 93 H Respiratory Rate Blood Pressure 123/75 136/95 142/76 05/04/19 05/04/19 05/04/19 06:20 06:34 06:48 Temperature Pulse Rate 90 88 88 Respiratory Rate Blood Pressure 121/65 111/53 122/59 05/04/19 05/04/19 05/04/19 07:04 07:20 09:30 Temperature 98.3 F Pulse Rate 70 90 Respiratory 14 Rate Blood Pressure 121/60 117/73 05/04/19 09:35 Temperature Pulse Rate 93 H Respiratory Rate Blood Pressure 146/76 - Exam Abdomen: Present: normal appearance, soft Uterus: Present: normal FHR: category 1 Uterine Contraction Monitor Mode: External Uterine Contraction Pattern: Irregular Uterine Tone Measurement Phase: Contraction Uterine Contraction Intensity: Mild - Labs Labs: Abnormal Labs 05/03/19 23:05 WBC 16.4 H Hgb 6.7 L Hct 22.9 L MCV 58 L MCH 17 L MCHC 29 L RDW 29.7 H Laboratory Results - last 24 hr 05/03/19 05/03/19 20:37 23:05 WBC 16.4 H RBC 3.93 Hgb 6.7 L Hct 22.9 L MCV 58 L MCH 17 L MCHC 29 L RDW 29.7 H Plt Count 256 Blood Type O NEGATIVE Antibody Screen Negative
[2019-05-04] MEDS: LACTATED RINGERS 1,000 ML IV SCH ×2 (15:37→17:09)
[2019-05-04] MEDS ORDERED: NARCAN 2 MG/2 ML IV PRN (16:01)
[2019-05-04] MEDS ORDERED: MARCAINE 0.25% INFILTRATI ONE (16:05)
--- NOTE | 2019-05-04 16:23 | Anesthesia Consultation ---
Anesthesia Consult and Med Hx Date of service: 05/04/19 - Airway Anesthetic Teeth Evaluation: Good Mental/Hyoid Distance: Adequate Mallampati Class: Class II Intubation Access Assessment: Good - Pulmonary Exam CTA: Yes - Cardiac Exam Cardiac Exam: RRR - Pre-Operative Health Status ASA Pre-Surgery Classification: ASA2, Emergency Proposed Anesthetic Plan: Epidural - Pulmonary Hx Asthma: No COPD: No Hx Pneumonia: No - Cardiovascular System Hx Hypertension: Yes - Central Nervous System Hx Seizures: No Hx Psychiatric Problems: No - Endocrine Hx Renal Disease: No Hx End Stage Renal Disease: No Hx Hypothyroidism: No Hx Hyperthyroidism: No - Hematic Hx Anemia: Yes Hx Sickle Cell Disease: No - Other Systems Hx Alcohol Use: No
[2019-05-04] MEDS ORDERED: fentaNYL-BUPIV 2 MCG/ML-0.125% 200 MCG/100 ML BAG EPIDURAL SCH (17:00)
[2019-05-04] MEDS ORDERED: REGLAN IV ONE (18:00)
[2019-05-04] MEDS ORDERED: LACTATED RINGERS 1,000 ML IV SCH (18:00)
[2019-05-04] MEDS ORDERED: BICITRA PO ONE (18:00)
[2019-05-04] MEDS ORDERED: NACL 0.9% 500 ML 500 ML IV ONE (18:00)
[2019-05-04] MEDS ORDERED: PEPCID IV ONE (18:00)
[2019-05-04] MEDS ORDERED: BENADRYL IV ONE (18:00)
[2019-05-04] MEDS ORDERED: PITOCin/NS 20 UNIT/1000ML DRIP 20 UNITS/1,000 ML BAG IV SCH ×2 (18:00→21:00)
[2019-05-04] MEDS ORDERED: ANCEF/STERILE WATER 2 GM/20 ML 2 GM/20 ML SYRINGE IV NR (18:00)
--- NOTE | 2019-05-04 18:10 | Progress Note ---
Assessment and Plan - Patient Problems (1) 39 weeks gestation of Onset Date: 05/03/19 Current Visit: Yes Status: Acute Plan to address problem: A: IUP @ 39 3/7 weeks Previous C Section - desires TOLAC Insufficient care Unknown GBS Non-reassuring monitoring P: Will proceed with a Repeat C Section (2) Insufficient care in third trimester Onset Date: 04/13/19 Current Visit: No Status: Acute (3) Previous section complicating Onset Date: 04/13/19 Current Visit: No Status: Chronic Subjective - Subjective Date of service: 05/04/19 Principal diagnosis: IUP @ 39 3/7 weeks; Previous C Section Interval history: Pt is a 33yo BF EDC 05/08/19; EGA 39 3/7 weeks who presented to L&D complaining of SROM clear fluid followed by irregular contractions. She received 1 visit @ [facility], and was admitted for a bl ood transfusion 04/13/19. She also had a previous C Section and desired a TOLAC. She received cervidil last night and currently on pitocin noris q 3-5 mins with repetitive decelerations. Her cervix is 2.5/80/V/-3. Will proceed with a Repeat C Section due to a non-reassuring monitoring. Patient reports: movement normal, contractions, no new complaints, no loss of fluid, no vaginal bleeding Objective - Vital Signs Vital Signs: Vital Signs - 12hr 05/04/19 05/04/19 05/04/19 06:20 06:34 06:48 Temperature Pulse Rate 90 88 88 Respiratory Rate Blood Pressure 121/65 111/53 122/59 Blood Pressure [Left] O2 Sat by Pulse Oximetry 05/04/19 05/04/19 05/04/19 07:04 07:20 09:30 Temperature 98.3 F Pulse Rate 70 90 Respiratory 14 Rate Blood Pressure 121/60 117/73 Blood Pressure [Left] O2 Sat by Pulse Oximetry 05/04/19 05/04/19 05/04/19 09:35 11:56 12:06 Temperature 98.0 F Pulse Rate 93 H 98 H Respiratory 14 Rate Blood Pressure 146/76 144/86 Blood Pressure [Left] O2 Sat by Pulse Oximetry 05/04/19 05/04/19 05/04/19 13:42 13:56 14:00 Temperature 98.0 F 97.5 F L Pulse Rate 106 H 110 H Respiratory 18 Rate Blood Pressure 133/80 121/70 Blood Pressure 121/70 [Left] O2 Sat by Pulse Oximetry 05/04/19 05/04/19 05/04/19 14:31 15:01 15:32 Temperature Pulse Rate 100 H 96 H 111 H Respiratory Rate Blood Pressure 135/73 132/71 118/79 Blood Pressure [Left] O2 Sat by Pulse Oximetry 05/04/19 05/04/19 05/04/19 16:02 16:13 16:15 Temperature Pulse Rate 100 H 111 H 110 H Respiratory Rate Blood Pressure 134/108 175/95 179/84 Blood Pressure [Left] O2 Sat by Pulse Oximetry 05/04/19 05/04/19 05/04/19 16:17 16:19 16:20 Temperature Pulse Rate 125 H 113 H 108 H Respiratory Rate Blood Pressure 178/89 173/89 155/82 Blood Pressure [Left] O2 Sat by Pulse Oximetry 05/04/19 05/04/19 05/04/19 16:21 16:23 16:25 Temperature Pulse Rate 115 H 115 H 109 H Respiratory Rate Blood Pressure 142/65 150/65 146/68 Blood Pressure [Left] O2 Sat by Pulse Oximetry 05/04/19 05/04/19 05/04/19 16:27 16:30 16:31 Temperature Pulse Rate 109 H 102 H 90 Respiratory Rate Blood Pressure 130/61 103/49 102/55 Blood Pressure [Left] O2 Sat by Pulse Oximetry 05/04/19 05/04/19 05/04/19 16:33 16:36 16:37 Temperature Pulse Rate 90 87 85 Respiratory Rate Blood Pressure 102/54 83/45 85/49 Blood Pressure [Left] O2 Sat by Pulse Oximetry 05/04/19 05/04/19 05/04/19 16:39 16:41 16:43 Temperature Pulse Rate 82 83 81 Respiratory Rate Blood Pressure 90/47 84/42 89/51 Blood Pressure [Left] O2 Sat by Pulse Oximetry 05/04/19 05/04/19 05/04/19 16:45 16:47 16:49 Temperature Pulse Rate 96 H 98 H 97 H Respiratory Rate Blood Pressure 112/62 98/50 89/42 Blood Pressure [Left] O2 Sat by Pulse 100 Oximetry 05/04/19 05/04/19 05/04/19 16:51 16:54 16:56 Temperature Pulse Rate 102 H 95 H 105 H Respiratory Rate Blood Pressure 84/44 102/55 92/55 Blood Pressure [Left] O2 Sat by Pulse 100 Oximetry 05/04/19 05/04/19 05/04/19 16:58 16:59 17:00 Temperature Pulse Rate 94 H 97 H 93 H Respiratory Rate Blood Pressure 80/37 77/36 Blood Pressure [Left] O2 Sat by Pulse 100 Oximetry 05/04/19 05/04/19 05/04/19 17:01 17:04 17:05 Temperature Pulse Rate 75 114 H 109 H Respiratory Rate Blood Pressure 118/67 96/47 88/43 Blood Pressure [Left] O2 Sat by Pulse 100 Oximetry 05/04/19 05/04/19 05/04/19 17:08 17:09 17:10 Temperature Pulse Rate 81 104 H 104 H Respiratory Rate Blood Pressure 115/66 103/54 Blood Pressure [Left] O2 Sat by Pulse 100 Oximetry 05/04/19 05/04/19 05/04/19 17:11 17:13 17:14 Temperature Pulse Rate 105 H 96 H 82 Respiratory Rate Blood Pressure 86/51 97/51 Blood Pressure [Left] O2 Sat by Pulse 100 Oximetry 05/04/19 05/04/19 05/04/19 17:16 17:18 17:19 Temperature Pulse Rate 92 H 101 H 104 H Respiratory Rate Blood Pressure 119/58 90/52 Blood Pressure [Left] O2 Sat by Pulse 100 Oximetry 05/04/19 05/04/19 05/04/19 17:20 17:21 17:24 Temperature Pulse Rate 107 H 100 H Respiratory Rate Blood Pressure 95/45 95/52 109/55 Blood Pressure [Left] O2 Sat by Pulse 100 Oximetry 05/04/19 05/04/19 05/04/19 17:25 17:27 17:29 Temperature Pulse Rate 100 H 99 H 100 H Respiratory Rate Blood Pressure 95/52 96/52 Blood Pressure [Left] O2 Sat by Pulse 100 Oximetry 05/04/19 05/04/19 05/04/19 17:30 17:31 17:33 Temperature Pulse Rate 101 H 97 H 100 H Respiratory Rate Blood Pressure 107/56 113/55 108/56 Blood Pressure [Left] O2 Sat by Pulse Oximetry 05/04/19 05/04/19 05/04/19 17:34 17:35 17:37 Temperature Pulse Rate 103 H 102 H 101 H Respiratory Rate Blood Pressure 102/53 102/54 Blood Pressure [Left] O2 Sat by Pulse 100 Oximetry 05/04/19 05/04/19 05/04/19 17:39 17:40 17:41 Temperature Pulse Rate 90 100 H 107 H Respiratory Rate Blood Pressure 110/63 103/55 Blood Pressure [Left] O2 Sat by Pulse 100 Oximetry 05/04/19 05/04/19 05/04/19 17:43 17:44 17:45 Temperature Pulse Rate 102 H 101 H 101 H Respiratory Rate Blood Pressure 101/58 92/50 Blood Pressure [Left] O2 Sat by Pulse 100 Oximetry 05/04/19 05/04/19 05/04/19 17:48 17:49 17:51 Temperature Pulse Rate 94 H 100 H 101 H Respiratory Rate Blood Pressure 117/63 111/61 109/57 Blood Pressure [Left] O2 Sat by Pulse 100 Oximetry 05/04/19 05/04/19 05/04/19 17:54 17:56 17:57 Temperature Pulse Rate 84 100 H 111 H Respiratory Rate Blood Pressure 136/64 116/56 99/53 Blood Pressure [Left] O2 Sat by Pulse 100 Oximetry 05/04/19 05/04/19 05/04/19 17:59 18:01 18:03 Temperature Pulse Rate 101 H 97 H 108 H Respiratory Rate Blood Pressure 112/61 123/68 116/60 Blood Pressure [Left] O2 Sat by Pulse 100 Oximetry 05/04/19 18:04 Temperature Pulse Rate 95 H Respiratory Rate Blood Pressure Blood Pressure [Left] O2 Sat by Pulse 100 Oximetry - Exam Abdomen: Present: normal appearance, soft FHR: category 2 Uterine Contraction Monitor Mode: External Cervical Dilatation: 2.5 Cervical Effacement Percentage: 80 station: -3 Uterine Contraction Pattern: Irregular Uterine Tone Measurement Phase: Contraction Uterine Contraction Intensity: Mild - Labs Labs: Abnormal Labs 05/03/19 05/03/19 20:37 23:05 WBC 16.4 H Hgb 6.7 L Hct 22.9 L MCV 58 L MCH 17 L MCHC 29 L RDW 29.7 H Crossmatch See Detail Laboratory Results - last 24 hr 05/03/19 05/03/19 05/03/19 20:37 20:37 23:05 WBC 16.4 H RBC 3.93 Hgb 6.7 L Hct 22.9 L MCV 58 L MCH 17 L MCHC 29 L RDW 29.7 H Plt Count 256 RPR Nonreactive Blood Type O NEGATIVE Antibody Screen Negative Crossmatch See Detail
[2019-05-04] MEDS ORDERED: XYLOCAINE 2%/ EPI 1:200,000 INFILTRATI ONE (19:14)
[2019-05-04] MEDS ORDERED: TORADOL ONE (20:00)
[2019-05-04] MEDS ORDERED: ZOFRAN ONE (20:00)
[2019-05-04] MEDS ORDERED: NACL 0.9% IR ONE (20:10)
[2019-05-04] MEDS ORDERED: WATER FOR IRRIG STERILE IR ONE (20:10)
--- NOTE | 2019-05-04 20:14 | Operative Report ---
Operative Report Operative Report: Date of procedure: 05/04/2019 Pre-operative diagnosis: 1. Intrauterine at 39-3/7 weeks in labor 2. Previous 3. Insufficient care 4. Nonreassuring surveillance Post-operative diagnosis: Same Procedure name(s): Repeat low transverse section Surgeon: Brody Crain MD Social And Political Studies Professor: None Anesthesia: Epidural anesthesia by Brian Ramires CRNA EBL: 500 mL's Findings: A 3867 g male Apgars 8 at 1 minute 9 at 5 minutes. Clear amniotic fluid. Normal uterus. Normal tubes and ovaries bilaterally. Procedure: After the patient was prepped and draped in usual sterile fashion, and after satisfactory level of epidural anesthesia was obtained, the skin knife was used to make a transverse skin incision through the previous skin scar. The incision was excised down to layer of the fascia, which was nicked in the midline and extended laterally using the Bovie cautery. The rectus muscles were dissected off the rectus fascia both superiorly and inferiorly. The rectus bellies in the midline, and the peritoneum was entered under direct visualization. The peritoneal incision was extended superiorly and inferiorly. A bladder flap was created and the bladder blade was then placed. The uterus was scored in a curvilinear linear fashion, entered in the midline revealing clear amniotic fluid. The infant's head was delivered onto the surgical field with the aid of a vacuum, and the oropharynx and nasopharynx were bulb suctioned. The rest of the infant's body was delivered, cord was doubly clamped and cut and the infant was handed to the waiting respiratory team. Cord blood was then obtained. The placenta was manually removed from the uterus, and the uterus removed from its normal anatomical position. After gentle uterine lavage, the incision was inspected and found to be without extensions. It was then closed in 2 layers using 0 Vicryl suture in a running interlocking fashion, the second layer imbricating the first. After good hemostasis was achieved, copious amounts or irrigation was performed, and the gutters were suctioned free of blood and blood clots. The Tisseel sealant was sprayed across the uterine incision. The uterus was then returned to its normal anatomical position, and after excellent hemostasis assured, the peritoneum was re-approximated using 3-0 Vicryl suture in a running interlocking fashion, and then the rectus muscles were re-approximated using 3-0 Vicryl suture in a [id number] configuration. The fascia was then re-approximated using 0 Vicryl suture in running interlocking fashion. The subcutaneous layer was made hemostatic using Bovie cautery, the Tisseel sealant was sprayed across the fascial incision and the skin edges re-approximated using 4-0 Vicryl suture in a sub-cuticular fashion. Patient tolerated the procedure well was transported to recovery in [facility].
[2019-05-04] MEDS ORDERED: NARCAN 0.4 MG/1 ML IV PRN ×2 (20:24→21:06)
[2019-05-04] MEDS ORDERED: MYLICON PO PRN (20:24)
[2019-05-04] MEDS ORDERED: TYLENOL PO PRN (20:24)
[2019-05-04] MEDS ORDERED: TUCKS PAD TP PRN (20:24)
[2019-05-04] MEDS ORDERED: SENOKOT PO PRN (20:24)
[2019-05-04] MEDS ORDERED: LANSINOH TP PRN (20:24)
[2019-05-04] MEDS ORDERED: NORCO 5/325 PO PRN (20:24)
[2019-05-04] MEDS ORDERED: MILK OF MAGNESIA PO PRN (20:24)
[2019-05-04] MEDS ORDERED: SODIUM CHLORIDE FLUSH SYRINGE 10 ML IV NR (21:00)
[2019-05-04] MEDS ORDERED: D5LR 1,000 ML IV SCH (21:00)
[2019-05-04] MEDS ORDERED: PHENERGAN PO PRN (21:06)
[2019-05-04] MEDS ORDERED: DILAUDID IV PRN (21:06)
[2019-05-04] MEDS ORDERED: PHENERGAN PR PRN (21:06)
[2019-05-04] MEDS ORDERED: ZOFRAN IV PRN (21:06)
[2019-05-04] MEDS ORDERED: MORPHINE IV PRN (21:06)
[2019-05-04] MEDS: TORADOL IV PRN (21:10)
[2019-05-04] MEDS ORDERED: SODIUM CHLORIDE FLUSH SYRINGE 10 ML IV PRN (22:00)
[2019-05-04] MEDS: DILAUDID IV PRN (22:27)
[2019-05-04] MEDS: ANCEF/NS 1 GM/50 ML 1 GM/50 ML BAG IV SCH (22:45)
[2019-05-05] MEDS: DILAUDID IV PRN (01:24)
[2019-05-05] MEDS: TORADOL IV PRN (04:26)
[2019-05-05] MEDS: PERCOCET 5/325 PO PRN ×2 (06:02→20:10)
[2019-05-05] MEDS: ANCEF/NS 1 GM/50 ML 1 GM/50 ML BAG IV SCH (06:02)
--- NOTE | 2019-05-05 08:22 | Progress Note ---
Assessment and Plan - Patient Problems (1) 39 weeks gestation of Onset Date: 05/03/19 Current Visit: Yes Status: Resolved (2) Insufficient care in third trimester Onset Date: 04/13/19 Current Visit: No Status: Resolved (3) Previous section complicating Onset Date: 04/13/19 Current Visit: No Status: Resolved (4) Status post section Onset Date: 05/05/19 Current Visit: Yes Status: Resolved Plan to address problem: A: S/P Repeat C Section - POD #1 Doing well Asymptomatic anemia - stable P: Continue RPOC Anticipate discharge in 24-48hrs (5) Chronic blood loss anemia Onset Date: 05/04/19 Current Visit: Yes Status: Chronic Subjective - Subjective Date of service: 05/05/19 Principal diagnosis: s/p C Section - POD #1 Interval history: Pt is feeling well without complaints. Bleeding improved. She is tolerating a liquid diet without nausea or vomiting, ambulating and voiding without difficulty. She denies dizziness, SOB or MÉNDEZ. Patient reports: appetite normal, voiding normally, pain well controlled, ambulating normally, no dizzy ambulation, no flatus, no nauseated [place]: doing well, bottle feeding Objective - Vital Signs Latest vital signs: Vital Signs Temp Pulse Resp BP BP Pulse Ox 05/05/19 04:14 98.3 F 97 H 20 146/89 96 05/04/19 21:49 94 H 146/93 96 05/04/19 21:21 98.3 F 96 H 23 134/75 97 05/04/19 21:05 93 H 21 129/68 99 05/04/19 20:50 94 H 24 126/74 99 05/04/19 20:35 91 H 22 110/64 97 05/04/19 20:30 80 21 111/57 94 05/04/19 20:25 93 H 22 106/49 96 05/04/19 20:20 97.7 F 92 H 30 H 101/42 95 05/04/19 19:10 103 H 100 05/04/19 19:09 93 H 127/76 05/04/19 19:07 102 H 124/59 05/04/19 19:06 117 H 132/59 05/04/19 19:05 115 H 98 05/04/19 19:03 105 H 129/75 05/04/19 19:01 96 H 131/72 05/04/19 19:00 102 H 100 07 18:59 95 H 132/69 07 18:57 99 H 127/65 05/04/19 18:56 68 93 05/04/19 18:55 104 H 137/73 100 05/04/19 18:53 107 H 131/66 05/04/19 18:51 112 H 129/72 05/04/19 18:50 109 H 96 05/04/19 18:49 115 H 125/67 05/04/19 18:47 114 H 135/70 05/04/19 18:46 99 H 147/72 05/04/19 18:45 92 H 98 05/04/19 18:44 112 H 94 05/04/19 18:43 102 H 122/73 05/04/19 18:41 105 H 113/66 05/04/19 18:40 110 H 98 05/04/19 18:39 113 H 116/70 05/04/19 18:38 108 H 93 05/04/19 18:37 103 H 133/74 05/04/19 18:35 109 H 108/61 100 05/04/19 18:33 109 H 116/67 05/04/19 18:32 106 H 116/59 05/04/19 18:30 92 H 97 05/04/19 18:29 95 H 117/72 05/04/19 18:27 113 H 117/58 05/04/19 18:25 115 H 114/63 98 05/04/19 18:23 97.7 F 103 H 16 121/58 121/58 95 05/04/19 18:21 112 H 115/56 05/04/19 18:20 103 H 129/60 05/04/19 18:17 110 H 103/53 05/04/19 18:16 112 H 100/54 05/04/19 18:13 101 H 121/70 05/04/19 18:11 115 H 97/51 05/04/19 18:09 116 H 98/53 05/04/19 18:08 110 H 107/56 05/04/19 18:06 93 H 123/68 05/04/19 18:04 95 H 100 07 18:03 108 H 116/60 05/04/19 18:01 97 H 123/68 05/04/19 17:59 101 H 112/61 100 05/04/19 17:57 111 H 99/53 05/04/19 17:56 100 H 116/56 05/04/19 17:54 84 136/64 100 05/04/19 17:51 101 H 109/57 05/04/19 17:49 100 H 111/61 100 05/04/19 17:48 94 H 117/63 05/04/19 17:45 101 H 92/50 05/04/19 17:44 101 H 100 05/04/19 17:43 102 H 101/58 05/04/19 17:41 107 H 103/55 05/04/19 17:40 100 H 110/63 05/04/19 17:39 90 100 05/04/19 17:37 101 H 102/54 05/04/19 17:35 102 H 102/53 05/04/19 17:34 103 H 100 05/04/19 17:33 100 H 108/56 05/04/19 17:31 97 H 113/55 05/04/19 17:30 101 H 107/56 05/04/19 17:29 100 H 100 05/04/19 17:27 99 H 96/52 05/04/19 17:25 100 H 95/52 05/04/19 17:24 100 H 109/55 100 05/04/19 17:21 95/52 05/04/19 17:20 107 H 95/45 05/04/19 17:19 104 H 100 05/04/19 17:18 101 H 90/52 05/04/19 17:16 92 H 119/58 05/04/19 17:14 82 100 05/04/19 17:13 96 H 97/51 05/04/19 17:11 105 H 86/51 05/04/19 17:10 104 H 103/54 05/04/19 17:09 104 H 100 05/04/19 17:08 81 115/66 05/04/19 17:05 109 H 88/43 05/04/19 17:04 114 H 96/47 100 05/04/19 17:01 75 118/67 05/04/19 17:00 93 H 77/36 05/04/19 16:59 97 H 100 05/04/19 16:58 94 H 80/37 05/04/19 16:56 105 H 92/55 05/04/19 16:54 95 H 102/55 100 05/04/19 16:51 102 H 84/44 05/04/19 16:49 97 H 89/42 100 05/04/19 16:47 98 H 98/50 05/04/19 16:45 96 H 112/62 05/04/19 16:43 81 89/51 05/04/19 16:41 83 84/42 05/04/19 16:39 82 90/47 05/04/19 16:37 85 85/49 05/04/19 16:36 87 83/45 05/04/19 16:33 90 102/54 05/04/19 16:31 90 102/55 05/04/19 16:30 102 H 103/49 05/04/19 16:27 109 H 130/61 05/04/19 16:25 109 H 146/68 05/04/19 16:23 115 H 150/65 05/04/19 16:21 115 H 142/65 05/04/19 16:20 108 H 155/82 05/04/19 16:19 113 H 173/89 05/04/19 16:17 125 H 178/89 05/04/19 16:15 110 H 179/84 05/04/19 16:13 111 H 175/95 05/04/19 16:02 100 H 134/108 05/04/19 16:01 97.6 F 05/04/19 15:32 111 H 118/79 05/04/19 15:01 96 H 132/71 05/04/19 14:31 100 H 135/73 05/04/19 14:00 97.5 F L 110 H 18 121/70 121/70 05/04/19 13:56 106 H 133/80 05/04/19 13:42 98.0 F 05/04/19 12:06 98.0 F 14 05/04/19 11:56 98 H 144/86 05/04/19 09:35 93 H 146/76 05/04/19 09:30 98.3 F 14 Intake and Output 05/04/19 05/05/19 05/05/19 22:59 06:59 14:59 Intake Total 2029.666 290 Output Total 450 400 Balance 1579.666 -110 Intake: IV 2028.6 50 ANCEF/NS 1 GM/50 ML 1 gm 50 In 50 ml @ 100 mls/hr IV Q8H NIHARIKA Rx#:[id number] Lactated Ringers 1,000 ml 1000 @ 125 mls/hr IV DIRECT NIHARIKA Rx#:[id number] PITOCin/NS 30 UNIT/500ML 29.666 30 units In 500 ml @ 4 mls/hr IV TITR NIHARIKA Rx#: [id number] Oral 240 Output: Urine 450 400 Indwelling Catheter 150 400 Other: Total, Intake Amount 240 Total, Output Amount 150 400 Estimated Blood Loss 500 - Exam Breasts: Present: deferred Lungs: Present: Clear to auscultation Abdomen: Present: normal appearance, soft Uterus: Present: normal, firm, fundal height below umbilicus Extremities: Present: normal Incision: Present: normal, dry, intact - Labs Labs: Abnormal lab results 05/03/19 Range/Units 20:37 Crossmatch See Detail Laboratory Tests 05/03/19 05/03/19 05/03/19 20:37 20:37 23:05 WBC 16.4 H RBC 3.93 Hgb 6.7 L Hct 22.9 L MCV 58 L MCH 17 L MCHC 29 L RDW 29.7 H Plt Count 256 RPR Nonreactive Blood Type O NEGATIVE Antibody Screen Negative Crossmatch See Detail 05/05/19 08:18 WBC RBC Hgb 5.6 L* Hct 19.3 L* MCV MCH MCHC RDW Plt Count RPR Blood Type Antibody Screen Crossmatch
[2019-05-05 08:44] LABS: Hematocrit 19.3 % (30.3-42.9); Hemoglobin 5.6 gm/dl (10.1-14.3)
[2019-05-05] MEDS ORDERED: FEOSOL PO SCH (10:00)
[2019-05-05] MEDS ORDERED: PRENATAL VITAMIN PO SCH (10:00)
[2019-05-05] MEDS: IBUPROFEN PO PRN (20:09)
[2019-05-05] MEDS ORDERED: M-M-R II VACCINE SUB-Q ONE (20:25)
[2019-05-05] MEDS ORDERED: BOOSTRIX IM ONE (20:25)
--- NOTE | 2019-05-05 22:50 | Discharge Summary ---
Providers - Providers Date of Admission: 05/03/19 19:50 Date of discharge: 05/06/19 Attending physician: SWETHA BRADLEY Primary care physician: SWETHA BRADLEY Hospitalization Reason for admission: induction of labor, rupture of membranes, IUP at term, other (Previous C Section) Delivery: Procedure: section, repeat low transverse Episiotomy: none Laceration: none Incision: normal, dry, intact Other procedures: none complications: none Discharge diagnosis: IUP at term delivered baby: male Hospital course: Pt is a 33yo BF EDC 05/08/19; EGA 39 3/7 weeks who presented to L&D complaining of SROM clear fluid followed by irregular contractions. She received 1 visit @ [facility], and was admitted for a blood transfusion 04/13/19. She also had a previous C Section and desired a TOLAC. She received cervidil followed by pitocin but developed a non-reassuring tracing requiring delivery by an uncomplicated Repeat C Section. By POD #1 she was tolerating a reg diet without nausea or vomiting, ambulating and voiding without difficulty. She was therefore discharged to home on POD #2 in stable condition. Condition at discharge: Good Disposition: [id number] TO HOME OR SELFCARE - Discharge Diagnoses (1) 39 weeks gestation of Status: Resolved (2) Insufficient care in third trimester Status: Resolved (3) Previous section complicating Status: Resolved (4) Status post section Status: Resolved (5) Chronic blood loss anemia Status: Chronic Plan - Discharge Medications Prescriptions: Ferrous Sulfate [Feosol 325 MG tab] 325 mg PO BID #60 tablet Ibuprofen [Motrin] 800 mg PO Q8HR PRN #30 tablet PRN Reason: Pain, Mild (1-3) HYDROcodone/APAP 5-325 [Success 5/325] 1 each PO Q6HR PRN #30 tablet PRN Reason: Pain Vit-Fe Fumar-FA [ Vitamin] 1 each PO QDAY #30 tablet - Provider Discharge Summary Activity: routine, no sex for 6 weeks, no heavy lifting 4 weeks, no strenuous exercise Diet: routine Instructions: routine Additional instructions: [] Smoking cessation referral if applicable(refer to patient education folder for contact #) [] Refer to [facility] Booklet Call your doctor immediately for: * Fever > 100.5 * Heavy vaginal bleeding ( >1 pad per hour) * Severe persistent headache * Shortness of breath * Reddened, hot, painful area to leg or breast * Drainage or odor from incision. * Keep incision clean and dry at all times and follow doctor's instructions regarding bathing/showering - Follow up plan Follow up: SWETHA BRDALEY MD [Primary Care Provider] - 14 Days
[2019-05-06] MEDS: IBUPROFEN PO PRN (02:24)
[2019-05-06] MEDS: PERCOCET 5/325 PO PRN ×2 (02:24→13:40)
[2019-05-06 10:02] VITALS: BP 141/89
== END 2019-05-06 14:10 | disposition home or self-care (01) | DRG 766 ==
LOC: LD 19:50 → APU 05-04 20:21 → OB 05-04 21:40
PROVIDERS: ADMIT Obstetrics & Gynecology; ATTEND Obstetrics & Gynecology
PROC: 10D00Z1 Extraction of Products of Conception, Low, Open Approach (ICD-10-PCS; principal; 2019-05-04)
DX: O76 Abnormality in fetal heart rate and rhythm complicating labor and delivery (principal); O99.02 Anemia complicating childbirth; D50.0 Iron deficiency anemia secondary to blood loss (chronic); Z37.0 Single live birth; Z3A.39 39 weeks gestation of pregnancy
CPT/HCPCS: 36415; 59200; 85014; 85018; 85027; 86592; 86850; 86900; 86901; 86920; G0378; C9250; J0290; J0595; J0690; J1170; J1885; J2405; J2590; J2765; J7120; J7121